=== PATIENT | female | born 1940 | race Caucasian/White ===

== ENCOUNTER 2020-12-24 12:52 | Emergency (ER) | payer OTHER ==
[~2020-12-24] VITALS: Ht 162.6 cm; Wt 59.9 kg
[2020-12-24] MEDS ORDERED: CARAFATE1 GM PO (22:48)
[2020-12-24] MEDS ORDERED: PEPCID AC20 MG PO (22:48)
[2020-12-24] MEDS ORDERED: PROTONIX20 MG PO (22:48)
[2020-12-24] MEDS ORDERED: NORFLEX100MG PO (22:48)
[2020-12-24] MEDS ORDERED: ACETAMINOPHEN650 M2 PO (22:48)
== END 2020-12-24 23:14 | disposition home or self-care (01) ==
LOC: ER 12:52
DX: R10.32 Left lower quadrant pain (principal)

== ENCOUNTER 2023-07-03 10:07 | Emergency (ER) | payer OTHER ==
[~2023-07-03] VITALS: Ht 154.9 cm; Wt 45.4 kg
[~2023-07-03 10:07] MED LIST: ACETAMINOPHEN650 M2 PO; CARAFATE1 GM PO; NORFLEX100MG PO; PEPCID AC20 MG PO; PROTONIX20 MG PO
[2023-07-03] MEDS ORDERED: ALPRAzolam 0.25 MG TABLET PO STA (10:37)
[2023-07-03] MEDS ORDERED: 0.9 % SODIUM CHLORIDE 1,000 ML IV STA (10:38)
[2023-07-03 11:17] LABS: PH,URINE 7.5 (5.0-8.0); URINE APPEARANCE Clear; URINE BILIRRUBIN Negative (NEGATIVE); URINE BLOOD Negative; URINE COLOR Yellow; URINE GLUCOSE Negative (NEGATIVE); URINE LEUKOCYTE Trace; URINE NITRATE Negative; URINE PROTEIN Trace (NEGATIVE)
[2023-07-03 11:21] LABS: URINE BACTERIA 138.5 uL (0.0-1933); URINE EPITHELIAL CELLS 9.2 uL (0.0-38.8); URINE RBC 3.8 uL (0.0-20.8); URINE WBC 20.5 uL (0.0-23.2)
[2023-07-03 11:36] LABS: CALCIUM 9.3 mg/dL (8.5-10.1); CREATININE SERUM 0.82 mg/dL (0.55-1.02); GFR 66.74; POTASSIUM 4.3 mEq/L (3.5-5.1)
[2023-07-03 11:40] LABS: HEMATOCRIT 37.4 % (36.0-45.00); HEMOGLOBIN 12.7 g/dL (12.0-15.00); MEAN CELL VOLUME 92.9 fL (80.00-100.00); MEAN CORPUSCULAR HEMOGLOBIN 31.5 pg (27.00-32.0); PLATELET COUNT 265 K/uL (150-450); RED BLOOD COUNT 4.03 M/uL (4.00-6.00); RED CELL DISTRIBUTION WIDTH 13.1 % (11.5-14.5)
== END 2023-07-03 13:29 | disposition home or self-care (01) ==
LOC: ER 10:07
PROVIDERS: General Practice
DX: F41.8 Other specified anxiety disorders (principal); G30.8 Other Alzheimer's disease; F02.80 Dementia in other diseases classified elsewhere, unspecified severity, without behavioral disturbance, psychotic disturbance, mood disturbance, and anxiety; I20.89 Other forms of angina pectoris
CPT/HCPCS: 36415; 96365; 96366; 99283; J7030